=== PATIENT | female | born 1940 | race Caucasian/White ===

== ENCOUNTER → 2023-10-27 | Outpatient (CLI) | payer MEDICARE, BC ==
[~2023-10-27] MED LIST: BASAGLAR K100 UNIT/1; GLIPIZIDE ER5 MG; GVOKE HYPO1 MG/0.2 M; LEVEMIR FLEXPEN 100; METFORMIN ER500 MG PO; NOVOLIN N100 UNIT/1; PANTOPRAZOLE SO40 MG PO; PREDNISONE10 MG; ROSUVASTATIN CA20 MG
[2023-10-27 10:33] LABS: ALBUMIN 4.2 g/dL (3.4-4.8)
[2023-10-27 10:35] LABS: CALCIUM 10.2 mg/dL (8.3-10.5)
[2023-10-27 10:36] LABS: TOTAL PROTEIN 6.5 g/dL (6.2-8.1)
[2023-10-27 10:38] LABS: TOTAL BILIRUBIN 0.9 mg/dL (0.2-1.2)
[2023-10-27 10:42] LABS: MAGNESIUM 1.86 mg/dL (1.60-2.60)
[2023-10-27 10:43] LABS: BASO # 0.04 K/mm3 (0.02-0.10); EOS # 0.16 K/mm3 (0.04-0.40); EOS % 1.7 % (1.0-5.0); HEMATOCRIT 41.5 % (37.0-47.0); HEMOGLOBIN 13.1 g/dL (12.5-16.0); LYMPH# 1.32 K/mm3 (1.50-4.00); MEAN CELL VOLUME 91 fl (78-100); MEAN CORPUSCULAR HEMOGLOBIN 29 pg (27-31); MEAN CORPUSCULAR HGB CONC 32 g/dL (33-37); MEAN PLATELET VOLUME 12.9 fl (7.4-10.4); MONO # 1.13 K/mm3 (0.20-0.80); PLATELET COUNT 147 K/mm3 (130-400); RED BLOOD COUNT 4.55 M/mm3 (4.10-5.30); RED CELL DISTRIBUTION WIDTH 13.5 % (11.5-14.5); WHITE BLOOD COUNT 9.2 K/mm3 (4.8-10.8)
[2023-10-27 11:47] LABS: URINE APPEARANCE CLOUDY (CLEAR); URINE COLOR DARK YELLOW (YELLOW)
[2023-10-27 11:48] LABS: URINE BILIRUBIN 1+ (NEGATIVE); URINE GLUCOSE TRACE (NEGATIVE); URINE KETONE 1+ (NEGATIVE); URINE NITRATE NEGATIVE (NEGATIVE); URINE PROTEIN(semi-quant) 1+ (NEGATIVE)
[2023-10-27 11:52] LABS: URINE BLOOD TRACE-INTACT (NEGATIVE); URINE LEUKOCYTE ESTERASE 1+ (NEGATIVE)
[2023-10-27 11:54] LABS: URINE MUCUS PRESENT (NOT PRESENT)
[2023-11-02 05:39] LABS: VITAMIN B1 130.9 nmol/L (())
== END ==
LOC: LAB 10:09
PROVIDERS: Internal Medicine
DX: E11.9 Type 2 diabetes mellitus without complications (principal); N39.0 Urinary tract infection, site not specified; E78.2 Mixed hyperlipidemia; K90.9 Intestinal malabsorption, unspecified

== ENCOUNTER → 2023-11-16 | Outpatient (CLI) | payer MEDICARE, BC ==
[2023-11-16 10:14] LABS: URINE APPEARANCE CLEAR (CLEAR); URINE COLOR YELLOW (YELLOW)
[2023-11-16 10:15] LABS: PH-URINE 5.5 (5.0 - 8.0); URINE BILIRUBIN NEGATIVE (NEGATIVE); URINE BLOOD NEGATIVE (NEGATIVE); URINE GLUCOSE 2+ (NEGATIVE); URINE KETONE TRACE (NEGATIVE); URINE LEUKOCYTE ESTERASE NEGATIVE (NEGATIVE); URINE MUCUS PRESENT (NOT PRESENT); URINE NITRATE NEGATIVE (NEGATIVE); URINE PROTEIN(semi-quant) TRACE (NEGATIVE)
== END ==
LOC: LAB 09:32
PROVIDERS: Internal Medicine
DX: N39.0 Urinary tract infection, site not specified (principal)

== ENCOUNTER → 2023-11-21 | Outpatient (CLI) | payer MEDICARE, BC ==
[~2023-11-21] MED LIST changes: +Gadoterate 20 ML VIAL IV ONE
== END ==
LOC: RAD 10:30
DX: I67.82 Cerebral ischemia (principal); R41.82 Altered mental status, unspecified
CPT/HCPCS: A9575

== ENCOUNTER → 2024-05-21 | Outpatient (CLI) | payer MEDICARE, BC ==
[~2024-05-21] MED LIST changes: -Gadoterate 20 ML VIAL IV ONE
[2024-05-21 14:49] LABS: BASO # 0.03 K/mm3 (0.02-0.10); EOS # 0.05 K/mm3 (0.04-0.40); EOS % 0.6 % (1.0-5.0); HEMATOCRIT 43.8 % (37.0-47.0); HEMOGLOBIN 13.8 g/dL (12.5-16.0); LYMPH# 0.61 K/mm3 (1.50-4.00); MEAN CELL VOLUME 95 fl (78-100); MEAN CORPUSCULAR HEMOGLOBIN 30 pg (27-31); MEAN CORPUSCULAR HGB CONC 32 g/dL (33-37); MEAN PLATELET VOLUME 12.7 fl (7.4-10.4); MONO # 0.36 K/mm3 (0.20-0.80); NEU # 7.16 K/mm3 (1.40-6.50); PLATELET COUNT 124 K/mm3 (130-400); RED BLOOD COUNT 4.59 M/mm3 (4.10-5.30); WHITE BLOOD COUNT 8.2 K/mm3 (4.8-10.8)
[2024-05-21 14:54] LABS: ALBUMIN 4.5 g/dL (3.4-4.8)
[2024-05-21 14:55] LABS: CALCIUM 10.5 mg/dL (8.3-10.5)
[2024-05-21 14:56] LABS: TOTAL PROTEIN 7.5 g/dL (6.2-8.1)
[2024-05-21 14:58] LABS: TOTAL BILIRUBIN 0.6 mg/dL (0.2-1.2)
[2024-05-21 15:03] LABS: MAGNESIUM 1.91 mg/dL (1.60-2.60)
== END ==
LOC: LAB 14:25
PROVIDERS: Internal Medicine
DX: E11.9 Type 2 diabetes mellitus without complications (principal); E78.2 Mixed hyperlipidemia; K90.9 Intestinal malabsorption, unspecified